=== PATIENT | male | born 1970 | race African-American/Black ===

== ENCOUNTER 2017-01-23 05:40 | Inpatient (IN) | payer MEDICAID ==
[~2017-01-23] VITALS: Ht 198.1 cm; Wt 95.0 kg
[2017-01-23] VITALS (14 sets, daily range): BP systolic 89–117; BP diastolic 57–75
[2017-01-23] MEDS ORDERED: GENTAMICIN SULFATE INJ 80 MG in IV DEXTROSE 5% 100 ML IV ONE (06:30)
[2017-01-23] MEDS ORDERED: CEFTAZIDIME 1 G in IV DEXTROSE 5% 50 ML IV ONE (06:30)
[2017-01-23] MEDS ORDERED: VANCOMYCIN IV 1,000 MG in IV DEXTROSE 5% 250 ML IV ONE (06:30)
[2017-01-23] MEDS ORDERED: IV NORMAL SALINE 1000 ML BAG IV ONE ×3 (06:30→08:00)
[2017-01-23 06:37] LABS: BASOPHILS # (AUTO) 0.1 K/uL (0.0-0.2); BASOPHILS % (AUTO) 0.7 % (0.0-2.0); MEAN CORPUSCULAR HEMOGLOBIN 28.8 uug (27.0-31.0); MEAN CORPUSCULAR HGB CONC 33 g/dL (32.0-37.0); MEAN CORPUSCULAR VOLUME 86.2 fL (82.0-92.0); MONOCYTES # (AUTO) 0.2 K/uL (0.1-1.30); MONOCYTES % (AUTO) 1.4 % (0.0-11.0); NEUTROPHILS # (AUTO) 15.8 K/uL (1.8-8.9); NEUTROPHILS % (AUTO) 91.9 % (38.5-71.5); PLATELET COUNT (AUTO) 195 K/uL (150-450); RED BLOOD CELL COUNT(AUTO) 5.22 MIL/uL (4.70-6.10); RED CELL DISTRIBUTION WIDTH 12.7 % (11.5-14.5); WHITE BLOOD COUNT (AUTO) 17.1 K/uL (4.0-11.2)
[2017-01-23 06:43] LABS: CALCIUM 9.4 mg/dL (8.5-10.1); POTASSIUM 3.5 mmol/L (3.5-5.1)
[2017-01-23] MEDS ORDERED: ALBU2.5V13 NEB (06:46)
[2017-01-23] MEDS ORDERED: DICL30AD3 PO (06:48)
[2017-01-23 06:51] LABS: TROPONIN I < 0.017 ng/mL (0.00-0.056)
[2017-01-23] MEDS ORDERED: DULCOLAX SUPP RC (06:51)
[2017-01-23] MEDS ORDERED: NA P133E RC (06:54)
[2017-01-23] MEDS ORDERED: VANCOMYCIN IV 200 ML ONE (06:54)
[2017-01-23 06:55] LABS: LACTIC ACID 5.8 mmol/L (0.4-2.0)
[2017-01-23 06:56] LABS: ALBUMIN 3.7 g/dL (3.4-5.0); BILIRUBIN,DIRECT 0.6 mg/dL (0.0-0.2); BILIRUBIN,TOTAL 1.3 mg/dL (0.2-1.0); CREATININE 2.9 mg/dL (0.6-1.3); TOTAL PROTEIN, SERUM 8.1 g/dL (6.4-8.2)
[2017-01-23] MEDS ORDERED: LACT10SO PO (06:56)
[2017-01-23] MEDS ORDERED: METO-302 PO (06:58)
[2017-01-23] MEDS ORDERED: MAGN400O4 PO (06:59)
[2017-01-23] MEDS ORDERED: MULT-70 PO (07:00)
[2017-01-23] MEDS ORDERED: MAG30ORA PO (07:01)
[2017-01-23] MEDS ORDERED: GABA800T PO (07:02)
[2017-01-23] MEDS ORDERED: ACET-2154 PO ×3 (07:08→07:13)
[2017-01-23] MEDS ORDERED: DEXT15SY3 PO (07:16)
--- NOTE | 2017-01-23 07:23 | NUR ---
Gave SBAR report to Yamile. Patient is drinking fluids so he can void into urinal. is aware.
[2017-01-23] MEDS ORDERED: GENTAMICIN SULFATE 80 MG/2 ML VIAL ONE (07:52)
[2017-01-23] MEDS ORDERED: CEFTAZIDIME 1 G VIAL ONE (07:52)
--- NOTE | 2017-01-23 07:55 | NUR ---
CALLED PICC LINE TEAM FOR PICC INSERSION, ETA 1 HOUR.
[2017-01-23 08:03] LABS: *BILIRUBIN,URIN NEGATIVE (NEGATIVE); *BLOOD, URINE Trace-intact (NEGATIVE); *CLARITY,URINE CLEAR (CLEAR); *COLOR,URINE YELLOW (YELLOW); *KETONES,URINE NEGATIVE (NEGATIVE); *PROTEIN,URINE 1+ (NEGATIVE); LEUKOCYTE ESTERASE ,URINE 1+ (NEGATIVE); NITRITE, URINE NEGATIVE (NEGATIVE); UGLUCOSE NEGATIVE (NEGATIVE)
[2017-01-23 08:20] LABS: BACTERIA,URINE FEW /HPF (NONE SEEN); RBC,URINE NONE SEEN /HPF (0-3); SQUAMOUS EPITHELIAL CELL,UR FEW /HPF (NONE SEEN)
--- NOTE | 2017-01-23 08:35 | NUR ---
[facility] COLLECTED AND SENT TO LAB. BELONGING LIST COMPLETED.
[2017-01-23] MEDS ORDERED: Medication Not On Formulary EA (Lactulose (Duphalac) 30 ML) PO PRN (09:15)
[2017-01-23] MEDS ORDERED: ACETAMINOPHEN 325 MG TABLET PO PRN (09:15)
[2017-01-23] MEDS ORDERED: ALBUTEROL SULFATE 2.5 MG/ 0.5 ML NEBU NEB PRN (09:15)
[2017-01-23] MEDS ORDERED: ONDANSETRON 4 MG/2 ML VIAL IV PRN (09:15)
[2017-01-23] MEDS ORDERED: MAG HYDROX/AL HYDROX/SIMETH 30 ML LIQUID UDC PO PRN (09:15)
[2017-01-23] MEDS ORDERED: FLEET ENEMA 133 ML BOTTLE RC PRN (09:15)
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
[2017-01-23] MEDS ORDERED: LACTULOSE 20 G/30 ML LIQUID UDC PO PRN (10:00)
[2017-01-23] MEDS ORDERED: GUAIFENESIN/DEXTROMETHORPHAN 5 ML UDC PO PRN (10:00)
[2017-01-23] MEDS ORDERED: GABAPENTIN 400 MG CAPSULE PO PRN (10:00)
--- NOTE | 2017-01-23 10:21 | NUR ---
CLINICAL PHARMACY NOTE:VANCOMYCIN DOSING Request for vancomycin dosing on 46 y/o male 6'2" 205LBs for sepsis Temp 99.1F, BUN 15, Scr 2.9, WBC 17.1 also receiving Zosyn Patient got vancomycin 1gm in ER . Continue Vancomycin 1250mg IVPB q24h hours estimate trough 14.9. Will order trough level prior to 4th dose of 1250mg. Will continue to monitor
[2017-01-23] MEDS ORDERED: BISACODYL 10 MG SUPP.RECT RC PRN (10:30)
[2017-01-23] MEDS: POTASSIUM CHLORIDE 20 MEQ in IV NS 1000 ML 1,000 ML IV PRN ×2 (10:40→22:45)
[2017-01-23] MEDS: PIPERACILLIN/TAZOBACTAM/D5W 2.25 G in PREMIXED 1 EACH IV SCH ×2 (12:26→18:27)
--- NOTE | 2017-01-23 14:00 | NUR ---
Ashleigh BUSBY RN FROM WOUND CARE AT [facility] TO DO SKIN ASSESSMENT; PT WAS COOPERATIVE WITH REMOVING HEEL PROTECTORS. PT BLE BELOW THE ANKLE ARE COVERED IN DRY SCALY SKIN; PT STATES HE HAS ALLODYNIA IN [place]AR[place]. FEET AND IS VERY SENSITIVE TO TOUCH THAT CAUSES EXTREME PAIN. PT REFUSED ANY TYPE OF MOISTURIZER OR LOTION THAT CAN BE ADMINISTERED FOR THE DRY SKIN. THE RN STATES THAT THERE IS NO NEED TO TAKE A PICTURE OF THE BLE BECAUSE THERE ARE NO WOUNDS THERE. PT TOLERATED ASSESSMENT WELL.
--- NOTE | 2017-01-23 14:26 | NUR ---
WOUND CARE CONSULT: PT PRESENTS WITH INTACT SKIN WITH DRY SCALY LOWER LEGS AND FEET. SOME SCARRING NOTED TO LOWER LEGS. PT STATES THAT HIS FEET ARE EXTREMELY SENSITIVE. PT IS CONTINENT. RECOMMENDATIONS MADE FOR SKIN PROTECTION. DISCUSSED WITH NURSING STAFF. PT ON FIRST STEP MATTRESS. PT TO BE TURNED AND REPOSITIONED EVERY 2 HRS PT CONDITION PERMITS, HEELS FLOATED. WILL SEE PRN. DENT IN AGREEMENT WITH PLAN OF CARE. Addendum: 01/23/17 at 1431 by CAM MORAN RN Amended: Links added.
[2017-01-23] MEDS ORDERED: MINERAL OIL/PETROLATUM,WHITE 57 GM TUBE TOP PRN (14:30)
--- NOTE | 2017-01-23 17:33 | NUR ---
Refereed by RN (Sarath) as patient request to have finger food items(easy to citrus picker) due to current condition (neurologic and musculoskeletal disorder). Assist patient on menu selection, informed diet clerks to assist patient, spoke to the nurse and offer boost TID, as food selection does not provide adequate energy/kcal. Patient likes chocolate flavor. Rd will do the full nutrition assessment tomorrow. Addendum: 01/23/17 at [address] Amended: Links added.
--- NOTE | 2017-01-23 18:00 | NUR ---
PT REFUSED TO EAT LUNCH AND DINNER; STATES HE'LL EAT LATER. PT ALSO REFUSED A BED BATH AT THIS TIME. VSS; DENIES PAIN AT THIS TIME
[2017-01-23] MEDS: BOOST PLUS 237 ML LIQUID (RICH CHOCOLATE) PO SCH (18:27)
--- NOTE | 2017-01-23 19:30 | NUR ---
Received patient in stable condition. VSS. Awake, alert, oriented x4. No complaints of pain or discomfort. Sinus tach on teletypesetter monitor with BP on lower side of normal limits. On room air, O2 saturation and RR WNL. IV sites intact, flushes well, IVF running as ordered. Patient on first step mattress. Call light within reach. SBAR report received from Gabriel Mantilla RN. Will continue plan of care.
[2017-01-24] VITALS (27 sets, daily range): BP systolic 84–127; BP diastolic 50–85
[2017-01-24] MEDS: PIPERACILLIN/TAZOBACTAM/D5W 2.25 G in PREMIXED 1 EACH IV SCH ×4 (00:07→17:29)
--- NOTE | 2017-01-24 01:30 | NUR ---
Noted low-grade fever of 99.7F orally. Non-pharmacological antipyretic measures applied, temperature trending down
[2017-01-24] MEDS ORDERED: VANCOMYCIN IV 1,250 MG in IV DEXTROSE 5% 500 ML IV SCH (02:00)
[2017-01-24 05:29] LABS: EOSINOPHILS # (AUTO) 0.1 K/uL (0.0-0.7); EOSINOPHILS % (AUTO) 0.6 % (0.0-7.0); MEAN CORPUSCULAR HEMOGLOBIN 29.7 uug (27.0-31.0)
[2017-01-24 05:33] LABS: HEMATOCRIT 38.8 % (40.0-50.0); HEMOGLOBIN 13.4 g/dL (14.0-18.0); LYMPHOCYTES # (AUTO) 0.8 K/uL (0.8-4.8); LYMPHOCYTES % (AUTO) 3.7 % (20.5-51.5); MEAN CORPUSCULAR HGB CONC 35 g/dL (32.0-37.0); MEAN CORPUSCULAR VOLUME 86.1 fL (82.0-92.0); MONOCYTES # (AUTO) 1.1 K/uL (0.1-1.30); MONOCYTES % (AUTO) 4.8 % (0.0-11.0); NEUTROPHILS # (AUTO) 20.3 K/uL (1.8-8.9); NEUTROPHILS % (AUTO) 90.9 % (38.5-71.5); PLATELET COUNT (AUTO) 147 K/uL (150-450); RED BLOOD CELL COUNT(AUTO) 4.51 MIL/uL (4.70-6.10); RED CELL DISTRIBUTION WIDTH 12.7 % (11.5-14.5); WHITE BLOOD COUNT (AUTO) 22.3 K/uL (4.0-11.2)
[2017-01-24 05:35] LABS: ALBUMIN 2.6 g/dL (3.4-5.0); CALCIUM 8.5 mg/dL (8.5-10.1); MAGNESIUM 1.4 mg/dL (1.8-2.4); PHOSPHOROUS 1.3 mg/dL (2.5-4.9); TOTAL PROTEIN, SERUM 7.2 g/dL (6.4-8.2)
[2017-01-24 05:38] LABS: CREATININE 1.4 mg/dL (0.6-1.3)
[2017-01-24 05:42] LABS: BAND % (MANUAL) 16 % (0-10); LYMPHOCYTES % (MANUAL) 5 % (20-40); MONOCYTES % (MANUAL) 5 % (2-10); NEUTROPHILS % (MANUAL) 74 % (42-75); THYROID STIMULATING HORMONE 0.798 mIU/mL (0.358-3.740)
[2017-01-24 05:43] LABS: PLATELET ESTIMATE ADEQUATE
--- NOTE | 2017-01-24 07:00 | NUR ---
Noted temperature of 101.3F orally. Tylenol given as ordered. Will endorse to day shift nurse
[2017-01-24] MEDS: PANTOPRAZOLE SODIUM 40 MG TABLET.DR PO SCH (07:09)
[2017-01-24] MEDS: ACETAMINOPHEN 325 MG TABLET PO PRN ×2 (07:09→18:39)
[2017-01-24] MEDS: MULTIVITAMINS,THERAPEUTIC TABLET PO SCH (08:02)
[2017-01-24] MEDS: ENOXAPARIN SODIUM 40 MG/0.4 ML DISP.SYRIN SQ SCH ×2 (08:03→08:13)
[2017-01-24] MEDS: BOOST PLUS 237 ML LIQUID (RICH CHOCOLATE) PO SCH ×3 (08:04→17:00)
--- NOTE | 2017-01-24 08:29 | NUR ---
Patient refused lovenox dose stating "it cause a huge hematoma that took me to surgery".
[2017-01-24] MEDS ORDERED: Medication Not On Formulary EA (Multivitamins (Multivitamin) 1 EACH) PO SCH (09:00)
[2017-01-24] MEDS ORDERED: SODIUM PHOSPHATE MM 7.5 MM in IV DEXTROSE 5% 100 ML IV ONE (09:15)
[2017-01-24] MEDS: MAGNESIUM SULFATE/D5W 100 ML IV SCH ×3 (09:29→11:16)
[2017-01-24] MEDS: HYDROMORPHONE 1 MG/1 ML DISP.SYRIN IV PRN (09:55)
--- NOTE | 2017-01-24 10:39 | NUR ---
CLINICAL PHARMACY NOTE:VANCOMYCIN DOSING To continue vancomycin dosing on 46 y/o male 6'2" 205LBs for sepsis Objective: Temp 101.3 BUN 11 Scr 1.4 (previously 2.9) WBC 22.3 also receiving Zosyn Assessment/Plan: Was started 1250mg q24hr vanco schedule yesterday however, due to improvement in renal function, will reschedule to 1250mg q12hr for expected trough of 16.63. Second dose of regimen to be given today at 1400. Will order trough before 4th scheduled dose (not ordered yet). Will also watch renal function daily and adjust as needed, will continue to monitor
[2017-01-24] MEDS: VANCOMYCIN IV 1,250 MG in IV DEXTROSE 5% 500 ML IV SCH (13:11)
[2017-01-24] MEDS: POTASSIUM CHLORIDE 20 MEQ in IV NS 1000 ML 1,000 ML IV PRN (13:12)
--- NOTE | 2017-01-24 15:30 | NUR ---
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 patient manage to turn himself to the left side and urinated all over the floor.
--- NOTE | 2017-01-24 16:20 | NUR ---
Dr. Fontenot in the unit to see patient.
--- NOTE | 2017-01-24 16:25 | NUR ---
Typist technical services analyst consult was ordered. According to TRESSA Friedman, the patient has been noncompliant and resistant to care in the unit. SW attempted to speak with the patient to reinforce the significance and importance of complying with care as well as address any social issues, however the patient was sleeping and unable to participate. SW attempted to wake up the patient however the patient was still non responsive.
--- NOTE | 2017-01-24 18:09 | NUR ---
Patient refusing PM care.
--- NOTE | 2017-01-24 18:45 | NUR ---
While pt's mother and a close friend at bedside dinner was served and patient refused to eat at this time. Mother stating "leave it at bedside he will eat later.
--- NOTE | 2017-01-24 19:30 | NUR ---
Received patient in no acute distress. Elevated temperature, see vital sign charting. Patient refused non-pharm antipyretic interventions at this time stating "I'm comfortable at this moment." Will continue to offer non-pharm techniques and administer antipyretic medications PRN as ordered. Tachycardic on bedside monitor with stable BP. Room air, SpO2 and RR WNL. On first step mattress. Leg braces in place. Call light within reach. Close CCU monitoring. SBAR report received from Gabriel Montesinos RN. Will continue plan of care.
--- NOTE | 2017-01-24 20:00 | NUR ---
Noted SpO2 below ordered range. Patient refused nasal cannula stating that he prefers simple mask. O2 supplement applied via simple mask, SpO2 now WNL
--- NOTE | 2017-01-24 20:36 | NUR ---
Asia, LIQUOR RECTIFIER ID, at bedside. Explained to patient need for urinary catheterization. Patient refused intervention stating that he wound "rather not have a catheter if we can help it." LIQUOR RECTIFIER explained to patient risks of residual urine maintained in bladder vs benefits of urinary catheterization. Patient verbalized understanding, agreed to catheterization if bladder scan shows residuals. Orders received, will implement.
--- NOTE | 2017-01-24 21:30 | NUR ---
Bladder scan done 5 minutes after patient voided. Residual found of 180 mL. After procedure, patient stated needing to use urinal again and voided total of 100 mL. Will continue to monitor and scan bladder q6h as ordered.
[2017-01-24] MEDS: MEROPENEM 0.5 G in IV NORMAL SALINE 50 ML IV SCH (22:08)
[2017-01-25] VITALS (19 sets, daily range): BP systolic 110–138; BP diastolic 60–86
--- NOTE | 2017-01-25 | NUR ---
Bladder scan completed after patient voided. Retaining 135 mL.
[2017-01-25] MEDS: ACETAMINOPHEN 325 MG TABLET PO PRN ×2 (02:57→12:50)
[2017-01-25] MEDS: VANCOMYCIN IV 1,250 MG in IV DEXTROSE 5% 500 ML IV SCH ×2 (02:57→14:16)
[2017-01-25] MEDS: HYDROMORPHONE 1 MG/1 ML DISP.SYRIN IV PRN (03:21)
[2017-01-25] MEDS: POTASSIUM CHLORIDE 20 MEQ in IV NS 1000 ML 1,000 ML IV PRN ×2 (05:17→21:14)
--- NOTE | 2017-01-25 06:00 | NUR ---
Bladder scan done after patient voided. Retaining 66 mL
[2017-01-25] MEDS: MEROPENEM 0.5 G in IV NORMAL SALINE 50 ML IV SCH ×3 (06:11→21:14)
[2017-01-25 06:19] LABS: BASOPHILS % (AUTO) 0.2 % (0.0-2.0); EOSINOPHILS # (AUTO) 0.2 K/uL (0.0-0.7); EOSINOPHILS % (AUTO) 1.5 % (0.0-7.0); HEMATOCRIT 37.9 % (40.0-50.0); HEMOGLOBIN 12.5 g/dL (14.0-18.0); LYMPHOCYTES # (AUTO) 1.2 K/uL (0.8-4.8); LYMPHOCYTES % (AUTO) 7.5 % (20.5-51.5); MEAN CORPUSCULAR HEMOGLOBIN 28.5 uug (27.0-31.0); MEAN CORPUSCULAR HGB CONC 33 g/dL (32.0-37.0); MEAN CORPUSCULAR VOLUME 86.6 fL (82.0-92.0); MONOCYTES # (AUTO) 0.6 K/uL (0.1-1.30); MONOCYTES % (AUTO) 3.9 % (0.0-11.0); NEUTROPHILS # (AUTO) 14.3 K/uL (1.8-8.9); NEUTROPHILS % (AUTO) 86.9 % (38.5-71.5); PLATELET COUNT (AUTO) 155 K/uL (150-450); RED BLOOD CELL COUNT(AUTO) 4.38 MIL/uL (4.70-6.10); RED CELL DISTRIBUTION WIDTH 13.2 % (11.5-14.5); WHITE BLOOD COUNT (AUTO) 16.3 K/uL (4.0-11.2)
[2017-01-25 06:47] LABS: EOSINOPHILS % (MANUAL) 1 % (0-8); LYMPHOCYTES % (MANUAL) 8 % (20-40); MONOCYTES % (MANUAL) 6 % (2-10); NEUTROPHILS % (MANUAL) 85 % (42-75)
[2017-01-25 06:48] LABS: PLATELET ESTIMATE ADEQUATE
[2017-01-25] MEDS: PANTOPRAZOLE SODIUM 40 MG TABLET.DR PO SCH (06:54)
[2017-01-25] MEDS: BOOST PLUS 237 ML LIQUID (RICH CHOCOLATE) PO SCH ×3 (07:01→17:48)
[2017-01-25 07:18] LABS: ALBUMIN 2.5 g/dL (3.4-5.0); BILIRUBIN,TOTAL 0.8 mg/dL (0.2-1.0); CALCIUM 8.5 mg/dL (8.5-10.1); CREATININE 1.3 mg/dL (0.6-1.3); MAGNESIUM 1.8 mg/dL (1.8-2.4); PHOSPHOROUS 1.7 mg/dL (2.5-4.9); POTASSIUM 3.9 mmol/L (3.5-5.1); TOTAL PROTEIN, SERUM 6.9 g/dL (6.4-8.2)
--- NOTE | 2017-01-25 07:30 | NUR ---
RECIEVED PT LYING IN BED WITH HOB UP 45DEGREES. ALERT AND ORIENTEDX3. SPEECH IS CLEAR. PT ABLE TO MOVE UPPER EXTREMETIES GOOD. LOWER EXTREMETIES WITH A LEG AND FOOT SUPPORT ON BOTH EXTREMETIES IN PLACE. HR IS PERSISTENTLYSINUS TACHYCARDIC BETWEEN 105 TO 130 B/MIN. DENIES ANY CHEST PAIN. AFEBRILE 98.7F. BOTH FEET HAS VERY CRUSTY SKIN, PT REFUSES TO MOVE AND OPEN HIS FOOT SUPPORT.
[2017-01-25] MEDS: MULTIVITAMINS,THERAPEUTIC TABLET PO SCH (08:31)
[2017-01-25] MEDS: ENOXAPARIN SODIUM 40 MG/0.4 ML DISP.SYRIN SQ SCH (08:32)
[2017-01-25] MEDS ORDERED: SODIUM PHOSPHATE MM 7.5 MM in IV DEXTROSE 5% 100 ML IV ONE (09:30)
--- NOTE | 2017-01-25 10:00 | NUR ---
PT REFUSES TO TURN, VERY FLAT AFFECT, PLEASANT BUT WANTED HIS OWN WAY. PREFERS TO STAY ON HIS BACK DESPITE STRONG ENCOURAGEMENT TO TURN ON HIS SIDE FROM TIME TO TIME.
--- NOTE | 2017-01-25 12:30 | NUR ---
TEMP 101F ORALLY. APPLIED COLD COMPRESS ON THE FOREHEAD. AND MEDICATED WITH TYLENOL 650MG PO. PT JUST HAD SOME BOOST DRINK FOR LUNCH.
--- NOTE | 2017-01-25 13:30 | NUR ---
PT'S O2SAT DROPPED IN THE 88-89% PLACED ON O2 AND PT PREFERES THE MASK AT 4L. O2 SAT UP TO 95-98%.
--- NOTE | 2017-01-25 14:12 | NUR ---
CLINICAL PHARMACY NOTE:VANCOMYCIN DOSING Subjective: To continue vancomycin dosing on 46 y/o male 6'2" 205LBs for sepsis/HCAP Objective: Temp 100.6 BUN 6 Scr 1.3 WBC 16.3 Assessment/Plan: Since renal function is stable, will continue Vancomycin 1250mg IV every 12hrs(third dose given today at 0257) and draw through by 4th dose(ordered tomorrow at 0130) for expected trough around 16. Will also watch renal function daily and adjust as needed. Will continue to monitor.
--- NOTE | 2017-01-25 18:00 | NUR ---
DR LEWIS CALLED AND ORDERED FOR PT TO TRANSFER TO TELEMETRY WITH SAME ORDERS. LATEST TEMP IS 98.7F. PT REFUSES TO EAT DINNER.
--- NOTE | 2017-01-25 20:00 | NUR ---
RECEIVED PATIENT FROM CCU BIB BY STAFF VIA LO. PT A/OX4, IN NO ACUTE DISTRESS. NO SOB REPORTED/OBSERVED. ON O2 4LPM VIA MASK SAT WNL. DENIES PAIN OR DISCOMFORT AT THIS TIME. BRACES NOTED ON LOWER LEGS, INTACT. AFEBRILE, SR ON THE MONITOR. VSS. PLACED IN ROOM 228, MADE COMFORTABLE. ON AIR MATTRESS. CALL LIGHT IN REACH. SAFETY MEASURES IN PLACE. WILL CONTINUE CARE. WILL CONTINUE MONITORING Addendum: 01/26/17 at 1945 by PABLO NICHOLAS RN BOOTS ON LOWER LEGS.
[2017-01-26] VITALS: BP 120/89
[2017-01-26] MEDS: VANCOMYCIN IV 1,250 MG in IV DEXTROSE 5% 500 ML IV SCH (03:00)
[2017-01-26 04:00] VITALS: BP 117/90
[2017-01-26] MEDS: MEROPENEM 0.5 G in IV NORMAL SALINE 50 ML IV SCH ×3 (05:13→21:15)
[2017-01-26] MEDS: PANTOPRAZOLE SODIUM 40 MG TABLET.DR PO SCH (06:04)
--- NOTE | 2017-01-26 06:45 | NUR ---
END OF SHIFT: PATIENT SLEPT WELL THROUGH THE NIGHT, NO ACUTE DISTRESS. BLADDER SCAN THIS AM SHOWED 25CC. PATIENT IN IVF, INFUSING ORDERED, WITH APPROPRIATE URINE OUTPUT PER SHIFT. COMPLIANT WITH CARE. PT ALLOWED TO CHECK BACK AREA, NO REDNESS NOTED. YELLOW LONG, THICK TOE NAILS NOTED, HEELS VERY DRY AND THICK, SCALY SKIN, PICTURES TAKEN AND PLACED IN CHART, ALTHOUGH LIMITED DUE TO LEG BRACES ON, PER PT IS DIFFICULT TO PUT BACK ON AND PAINFUL FOR PT. ALL DUE MEDS GIVEN ORDERED. ALL NEEDS ATTENDED AND MET. REPOSITIONED FOR COMFORT. ON AIR MATTRESS. CALL LIGHT IN REACH. SAFETY AND COMFORT MEASURES PROVIDED. ON TELE: SR, SINUS TACHY ON THE MONITOR, HR 90 AT THIS TIME. WILL ENDORSE PLAN OF CARE TO DAY SHIFT NURSE.
[2017-01-26 06:57] LABS: BASOPHILS % (AUTO) 0.3 % (0.0-2.0); EOSINOPHILS # (AUTO) 0.2 K/uL (0.0-0.7); EOSINOPHILS % (AUTO) 1.5 % (0.0-7.0); HEMATOCRIT 37.5 % (40.0-50.0); HEMOGLOBIN 12.1 g/dL (14.0-18.0); LYMPHOCYTES # (AUTO) 1.3 K/uL (0.8-4.8); LYMPHOCYTES % (AUTO) 10.3 % (20.5-51.5); MEAN CORPUSCULAR HEMOGLOBIN 27.8 uug (27.0-31.0); MEAN CORPUSCULAR HGB CONC 32 g/dL (32.0-37.0); MEAN CORPUSCULAR VOLUME 85.8 fL (82.0-92.0); MONOCYTES # (AUTO) 1.1 K/uL (0.1-1.30); MONOCYTES % (AUTO) 8.5 % (0.0-11.0); NEUTROPHILS # (AUTO) 9.8 K/uL (1.8-8.9); NEUTROPHILS % (AUTO) 79.4 % (38.5-71.5); PLATELET COUNT (AUTO) 189 K/uL (150-450); RED BLOOD CELL COUNT(AUTO) 4.37 MIL/uL (4.70-6.10); RED CELL DISTRIBUTION WIDTH 13.3 % (11.5-14.5); WHITE BLOOD COUNT (AUTO) 12.4 K/uL (4.0-11.2)
[2017-01-26 07:55] LABS: ALBUMIN 2.4 g/dL (3.4-5.0); BILIRUBIN,TOTAL 0.8 mg/dL (0.2-1.0); CALCIUM 8.8 mg/dL (8.5-10.1); MAGNESIUM 1.8 mg/dL (1.8-2.4); PHOSPHOROUS 2.6 mg/dL (2.5-4.9); POTASSIUM 4.1 mmol/L (3.5-5.1); TOTAL PROTEIN, SERUM 6.9 g/dL (6.4-8.2)
[2017-01-26] MEDS: BOOST PLUS 237 ML LIQUID (RICH CHOCOLATE) PO SCH ×3 (08:00→17:00)
--- NOTE | 2017-01-26 08:00 | NUR ---
Sleeping, O2 per mask at 6L, not in distress. Tried to wake up for breakfast but still sleeping
[2017-01-26 08:40] LABS: BAND % (MANUAL) 7 % (0-10); LYMPHOCYTES % (MANUAL) 18 % (20-40); MONOCYTES % (MANUAL) 6 % (2-10); NEUTROPHILS % (MANUAL) 69 % (42-75)
[2017-01-26] MEDS: ENOXAPARIN SODIUM 40 MG/0.4 ML DISP.SYRIN SQ SCH (09:00)
--- NOTE | 2017-01-26 09:16 | NUR ---
CLINICAL PHARMACY NOTE:VANCOMYCIN DOSING Subjective: To continue vancomycin dosing on 46 y/o male for sepsis/HCAP Objective: Temp 98.6 BUN 4 Scr 1.0 WBC 12.4 Vancomycin trough level:12 ht 6' 6'' wt 210 lb Assessment/Plan: Since vancomycin trough level is 12 & srcr has decreased, will change vancomycin dose from 1250mg IVPB q12h to 1500mg IVPB q11h for predicted vancomycin trough level of 15.8 mcg/ml at steady state. First dose of this regimen is due today at 1400. Plan to draw through by 4th dose(not yet ordered). Will monitor renal function daily and adjust as needed. Will continue to monitor.
--- NOTE | 2017-01-26 11:00 | NUR ---
Awake at this time, medication given but refused Lovenox. Able to give Boost drink
[2017-01-26] MEDS: POTASSIUM CHLORIDE 20 MEQ in IV NS 1000 ML 1,000 ML IV PRN (11:01)
[2017-01-26] MEDS: MULTIVITAMINS,THERAPEUTIC TABLET PO SCH (11:01)
[2017-01-26 11:48] VITALS: BP 122/89
--- NOTE | 2017-01-26 12:29 | NUR ---
Sleeping, will not wake up. Bladder scan not done at this time, with 600 ml urine at 1015
[2017-01-26] MEDS: VANCOMYCIN IV 1,500 MG in IV DEXTROSE 5% 500 ML IV SCH (14:21)
[2017-01-26 16:06] VITALS: BP 119/80
--- NOTE | 2017-01-26 18:28 | NUR ---
Pt refused offer of bath and repositioning several times by RN and INSPECTOR WATCH PARTS during the shift, explained risks and benefits. Refused to eat and refused bladder scan as ordered, sleeping most of the time but otherwise in stable condition with no complaints
--- NOTE | 2017-01-26 18:36 | NUR ---
Spoke with regardiing prvious functional condition and current condition. Informed of refusal of some care and meals
--- NOTE | 2017-01-26 19:45 | NUR ---
PATIENT IN BED RESTING WITH EYES CLOSED, IN NO ACUTE DISTRESS. EVEN AND NONLABORED BREATHING NOTED. ON O2 6L VIA MASK SAT WNL. IVF INFUSING AT 100CC/HR ORDERED. CALL LIGHT IS WITHIN REACH AND SAFETY MEASURES IN PLACE. WILL CONTINUE TO MONITOR.
[2017-01-26 20:00] VITALS: BP 118/86
[2017-01-26] MEDS: LACTOBACILLUS RHAMNOSUS GG 1 EACH CAPSULE PO SCH (20:57)
[2017-01-27] MEDS: VANCOMYCIN IV 1,500 MG in IV DEXTROSE 5% 500 ML IV SCH ×2 (01:29→11:50)
[2017-01-27] MEDS: POTASSIUM CHLORIDE 20 MEQ in IV NS 1000 ML 1,000 ML IV PRN (01:30)
[2017-01-27 05:47] VITALS: BP 119/86
[2017-01-27] MEDS: MEROPENEM 0.5 G in IV NORMAL SALINE 50 ML IV SCH ×2 (06:20→14:12)
[2017-01-27] MEDS: PANTOPRAZOLE SODIUM 40 MG TABLET.DR PO SCH (06:21)
--- NOTE | 2017-01-27 06:43 | NUR ---
PATIENT SITTING UP IN BED ON HIS PERSONAL IPAD. IN NO ACUTE DISTRESS THROUGHOUT SHIFT. SLEPT WELL. NO SIGNIFICANT CHANGES PER SHIFT. ALL DUE MEDS GIVEN ORDERED. ADEQUATE URINE OUTPUT. ALL NEEDS ATTENDED AND MET. CALL LIGHT WITHIN REACH. SAFETY AND COMFORT MEASURES PROVIDED.
[2017-01-27 07:38] LABS: BASOPHILS % (AUTO) 0.3 % (0.0-2.0); EOSINOPHILS # (AUTO) 0.2 K/uL (0.0-0.7); EOSINOPHILS % (AUTO) 1.9 % (0.0-7.0); HEMATOCRIT 35.8 % (40.0-50.0); HEMOGLOBIN 11.9 g/dL (14.0-18.0); LYMPHOCYTES # (AUTO) 1.4 K/uL (0.8-4.8); LYMPHOCYTES % (AUTO) 16.6 % (20.5-51.5); MEAN CORPUSCULAR HEMOGLOBIN 28.8 uug (27.0-31.0); MEAN CORPUSCULAR HGB CONC 33 g/dL (32.0-37.0); MEAN CORPUSCULAR VOLUME 86.6 fL (82.0-92.0); MONOCYTES # (AUTO) 1.3 K/uL (0.1-1.30); MONOCYTES % (AUTO) 15.4 % (0.0-11.0); NEUTROPHILS # (AUTO) 5.7 K/uL (1.8-8.9); NEUTROPHILS % (AUTO) 65.8 % (38.5-71.5); PLATELET COUNT (AUTO) 191 K/uL (150-450); RED BLOOD CELL COUNT(AUTO) 4.14 MIL/uL (4.70-6.10); RED CELL DISTRIBUTION WIDTH 13.2 % (11.5-14.5); WHITE BLOOD COUNT (AUTO) 8.6 K/uL (4.0-11.2)
[2017-01-27 07:59] LABS: CREATININE 0.9 mg/dL (0.6-1.3); MAGNESIUM 1.7 mg/dL (1.8-2.4); PHOSPHOROUS 2.8 mg/dL (2.5-4.9); POTASSIUM 3.9 mmol/L (3.5-5.1)
--- NOTE | 2017-01-27 08:30 | NUR ---
AWAKE ALERT COOPERATE NO SOB OR PAIN AT THIS TIME ON FALL PRECAUTION BED ALARM ON AND CALL [place] IN REACH ,CONTINUE IVF POOR APPETITE
[2017-01-27] MEDS: BOOST PLUS 237 ML LIQUID (RICH CHOCOLATE) PO SCH ×3 (08:55→17:00)
[2017-01-27] MEDS: MULTIVITAMINS,THERAPEUTIC TABLET PO SCH (08:55)
[2017-01-27] MEDS: LACTOBACILLUS RHAMNOSUS GG 1 EACH CAPSULE PO SCH (08:55)
[2017-01-27] MEDS: ENOXAPARIN SODIUM 40 MG/0.4 ML DISP.SYRIN SQ SCH ×2 (08:56→09:00)
[2017-01-27 10:36] LABS: BAND % (MANUAL) 4 % (0-10); NEUTROPHILS % (MANUAL) 58 % (42-75)
[2017-01-27 10:37] LABS: EOSINOPHILS % (MANUAL) 1 % (0-8); LYMPHOCYTES % (MANUAL) 20 % (20-40); METAMYELOCYTES % 3 % (0-1); MONOCYTES % (MANUAL) 14 % (2-10); PLATELET ESTIMATE ADEQUATE
[2017-01-27] MEDS ORDERED: MAGNESIUM SULFATE/D5W 100 ML IV SCH (11:15)
[2017-01-27 12:08] VITALS: BP 134/97
[2017-01-27] MEDS ORDERED: MULT-24 PO (12:27)
[2017-01-27] MEDS ORDERED: PANT40TA2 PO (12:27)
[2017-01-27] MEDS ORDERED: MINE454C11 TOP (12:27)
[2017-01-27] MEDS ORDERED: LACT1CAP57 PO (12:27)
[2017-01-27] MEDS ORDERED: Lactose-Free Food PO (12:27)
[2017-01-27] MEDS ORDERED: CEPH-570 PO (13:53)
--- NOTE | 2017-01-27 14:00 | NUR ---
DR YODER SEE PATIENT AND LAB RESULT AND ORDER OK TO GO BACK [facility] WITH ORDERED
--- NOTE | 2017-01-27 15:00 | NUR ---
D/C INSTRUCTION TO [facility] EXPLAINED TO PATIENT AND FAMILY ,VERBALIZES UNDERSTAND AND SIGNS D/C SHEET IV HL WAS DISCONTINUE PRIOR D/C HOME TODAY
--- NOTE | 2017-01-27 15:10 | NUR ---
REPORT GIVEN TO MANNY ARELLANO VIA TEL
[2017-01-27] MEDS: HYDROMORPHONE 1 MG/1 ML DISP.SYRIN IV PRN (15:15)
[2017-01-27 15:39] VITALS: BP 122/87
--- NOTE | 2017-01-27 16:44 | NUR ---
CLINICAL PHARMACY NOTE:VANCOMYCIN DOSING Subjective: To continue vancomycin dosing on 46 y/o male for sepsis/HCAP Objective: Temp 98.5 BUN 6 Scr 0.9 WBC 8.6 Vancomycin trough level:12 ht 6' 6'' wt 210 lb Assessment/Plan: Scr continues to improve, continued on vanco 1500mg IVPB q11h for predicted vancomycin trough level of 15.8 mcg/ml at steady state. Plan to draw through by 4th dose(ordered for Azuki (Vozero/Gengibre) @2230). RN to hold dose if trough >20. Will check trough in am and adjust as needed. Will monitor renal function daily and adjust as needed. Will continue to monitor.
--- NOTE | 2017-01-27 17:00 | NUR ---
PT REFUSED TO TAKE PICTURES OF SKIN DRYNESS UPON DISCHARGE
--- NOTE | 2017-01-27 17:40 | NUR ---
D/C TO [facility] VIA AMBULANCE CONDITION STABLE
== END 2017-01-27 17:40 | DRG 720 ==
LOC: ER 05:47 → CCU 08:31 → TELE 01-25 20:05 → MED 01-26 14:57
PROVIDERS: ADMIT Internal Medicine; ATTEND Internal Medicine
DX: A41.50 Gram-negative sepsis, unspecified (principal); N17.0 Acute kidney failure with tubular necrosis; R65.21 Severe sepsis with septic shock; J69.0 Pneumonitis due to inhalation of food and vomit; E43 Unspecified severe protein-calorie malnutrition; I50.31 Acute diastolic (congestive) heart failure; G82.50 Quadriplegia, unspecified; G93.41 Metabolic encephalopathy; S06.9X0S Unspecified intracranial injury without loss of consciousness, sequela; S14.104S Unspecified injury at C4 level of cervical spinal cord, sequela; S14.5XXS Injury of cervical sympathetic nerves, sequela; V29.60XS Unspecified motorcycle rider injured in collision with unspecified motor vehicles in traffic accident, sequela; Z68.24 Body mass index [BMI] 24.0-24.9, adult; N39.0 Urinary tract infection, site not specified; B96.20 Unspecified Escherichia coli [E. coli] as the cause of diseases classified elsewhere; E86.0 Dehydration; E83.42 Hypomagnesemia; E83.39 Other disorders of phosphorus metabolism; D50.0 Iron deficiency anemia secondary to blood loss (chronic); G62.9 Polyneuropathy, unspecified; I11.0 Hypertensive heart disease with heart failure
CPT/HCPCS: 36415; 70030-TC; 71010; 83550; 83605; 83735; 84100; 84443; 85025; 85730; 87040; 87077; 87086; 93005; 93307; A4663; J0713; J1170; J1580; J1650; J2185; J2543; J3370; J3475; J3480; J3490; J7030; J7060